=== PATIENT | male | born 1935 | race Caucasian/White ===

== ENCOUNTER 2020-09-10 16:02 | Observation (INO) | payer MEDICARE, BC ==
[2020-09-10 16:25] LABS: #Eosinphils 0.2 10x3/uL (0.0-0.5); #Monocytes 0.5 10x3/uL (0.0-1.1); #Neutrophils 3.2 10x3/uL (1.5-8.4); %Basophils 0.8 % (0.0-2.0); %Eosinophils 3.2 % (0.0-6.0); %Monocytes 9.4 % (0.0-10.0); %Neutrophils 64.4 % (40.0-75.0); Hemoglobin 14.6 g/dL (13.5-17.5); Mean Corpuscular Hemoglobin 32.1 pg (27.0-33.0); Mean Corpuscular Volume 94.5 fl (81.2-95.1); Mean Platelet Volume 9.3 fl (7.4-10.4); Platelet Count 219 10x3/uL (150-450); RBC Distribution Width 12.6 % (11.5-14.5); Red Blood Cell (RBC) Count 4.55 10x6/uL (4.32-5.72)
[2020-09-10 16:52] LABS: ALT (SGPT) 17 U/L (8-55); AST (SGOT) 20 U/L (5-34); Albumin 4.1 g/dL (3.4-4.8); Alkaline Phosphatase 70 U/L (40-110); Anion Gap 12 mmol/L (10-20); BUN (Urea Nitrogen) 14 mg/dL (8.4-25.7); Bilirubin, Total 0.4 mg/dL (0.2-1.2); Calc. Creatinine Clearance 0 mL/min (70-130); Calcium 8.9 mg/dL (7.8-10.44); Carbon Dioxide 26 mmol/L (23-31); Chloride 101 mmol/L (98-107); Globulin 2.7 g/dL (2.4-3.5); Glucose 110 mg/dL (83-110); Potassium 3.8 mmol/L (3.5-5.1); Protein, Total 6.8 g/dL (5.8-8.1); Sodium 135 mmol/L (136-145)
[2020-09-10] MEDS ORDERED: Dextrose 5% in Water 1,000 ML IV PRN (19:22)
[2020-09-10] MEDS ORDERED: Calcium Carbonate 500 MG ChewTAB PO PRN (19:22)
[2020-09-10] MEDS ORDERED: Senokot S 8.6-50 MG TAB PO PRN (19:22)
[2020-09-10] MEDS ORDERED: Ondansetron PF 4 MG/2 ML Vial IVP PRN (19:22)
[2020-09-10] MEDS ORDERED: Acetaminophen 325 MG TAB PO PRN (19:22)
[2020-09-10] MEDS ORDERED: Dextrose 50% Abboject 50 ML SYRINGE SLOW IVP PRN (19:22)
[2020-09-10] MEDS ORDERED: HumaLOG 300 UNITS/3 ML VIAL SC PRN (19:22)
[2020-09-10] MEDS ORDERED: Sodium Chloride 0.9% 500 ML IV SCH (19:30)
[2020-09-10] MEDS ORDERED: Lisinopril 20 MG TAB PO SCH (21:00)
[2020-09-10] MEDS ORDERED: Atorvastatin Calcium 10 MG TAB PO SCH (21:00)
[2020-09-10] MEDS ORDERED: Lisinopril 10 MG TAB ONE (22:00)
[2020-09-10] MEDS: Mesalamine DR 400 mg Capsule PO SCH (23:30)
[2020-09-11 04:20] LABS: Cardiac Risk 3.3 (Less than 4.5)
[2020-09-11] MEDS ORDERED: Enoxaparin Sodium 40 MG/0.4 ML SYRINGE SC SCH (09:00)
[2020-09-11] MEDS ORDERED: Ubidecarenone 50 MG CAP PO SCH (09:00)
[2020-09-11] MEDS ORDERED: Aspirin 81 mg Enteric Coated Tablet PO SCH (09:00)
[2020-09-11] MEDS: Carvedilol 6.25 MG TAB PO SCH ×2 (10:00→15:59)
[2020-09-11 10:01] VITALS: BMI 23.4
[2020-09-11] MEDS: metFORMIN 500 MG TAB PO SCH ×2 (10:01→16:00)
[2020-09-11] MEDS: Mesalamine DR 400 mg Capsule PO SCH ×2 (10:05→15:58)
[2020-09-11 11:22] LABS: Hemoglobin A1c 5.5 % (4.0-6.0)
[2020-09-11 16:08] VITALS: TEMP 97.8
[2020-09-11 16:17] VITALS: BP 146/74
[2020-09-11 22:14] LABS: SARS-CoV-2 PCR by NAA Not Detected (NotDetected)
== END 2020-09-11 17:40 | disposition home or self-care (01) ==
LOC: CSHERS 16:02 → CSHERHOLD 19:22 → UNDOADMOB 23:01 → CSHERHOLD 23:01 → INTOOBSV 23:01 → CSHTELE 09-11 07:45 → CSHERHOLD 09-11 07:45 → UNDODISOB 09-11 17:40
PROVIDERS: ADMIT Student in an Organized Health Care Education/Training Program; ATTEND Family Medicine
DX: I63.9 Cerebral infarction, unspecified (principal); R29.701 NIHSS score 1; G83.22 Monoplegia of upper limb affecting left dominant side; R90.82 White matter disease, unspecified; I49.3 Ventricular premature depolarization; E11.22 Type 2 diabetes mellitus with diabetic chronic kidney disease; I12.9 Hypertensive chronic kidney disease with stage 1 through stage 4 chronic kidney disease, or unspecified chronic kidney disease; N18.2 Chronic kidney disease, stage 2 (mild); K51.90 Ulcerative colitis, unspecified, without complications; Z20.822 Contact with and (suspected) exposure to COVID-19; Z79.899 Other long term (current) drug therapy; Z79.84 Long term (current) use of oral hypoglycemic drugs
CPT/HCPCS: 70450; 70551; 71045; 80053; 80061; 82962 ×2; 83036; 84443; 84484; 85025; 93005; 93306; 93880; 97139; 99285; U0003; U0005; 36415; 36416; 87635; 96372; G0378; J1650

== ENCOUNTER 2023-05-09 11:09 | Inpatient (IN) | payer MEDICARE, BC ==
[2023-05-09 11:45] LABS: #Basophils 0.1 10x3/uL (0.0-0.2); #Eosinphils 0.5 10x3/uL (0.0-0.5); #Monocytes 0.7 10x3/uL (0.0-1.1); #Neutrophils 3.9 10x3/uL (1.5-8.4); %Basophils 0.8 % (0.0-2.0); %Eosinophils 7.5 % (0.0-6.0); %Lymphocytes 14.9 % (18.0-47.0); %Monocytes 11.7 % (0.0-10.0); %Neutrophils 64.9 % (40.0-75.0); Hematocrit 37.1 % (38.8-50.0); Hemoglobin 12.4 g/dL (13.5-17.5); Mean Corpuscular HGB CONC 33.4 g/dL (32.0-36.0); Mean Corpuscular Volume 95.9 fl (81.2-95.1); Mean Platelet Volume 9.5 fl (7.4-10.4); Platelet Count 193 10x3/uL (150-450); RBC Distribution Width 13.2 % (11.5-14.5); Red Blood Cell (RBC) Count 3.87 10x6/uL (4.32-5.72)
[2023-05-09 12:00] LABS: Troponin I 0.018 ng/mL (< 0.028)
[2023-05-09 12:01] LABS: ALT (SGPT) 12 U/L (8-55); AST (SGOT) 16 U/L (5-34); Albumin 3.2 g/dL (3.4-4.8); Alkaline Phosphatase 71 U/L (40-110); Anion Gap 16 mmol/L (10-20); BUN (Urea Nitrogen) 14 mg/dL (8.4-25.7); Bilirubin, Total 0.6 mg/dL (0.2-1.2); Calc. Creatinine Clearance 0 mL/min (70-130); Calcium 8.2 mg/dL (7.8-10.44); Carbon Dioxide 23 mmol/L (23-31); Chloride 103 mmol/L (98-107); Estimated GFR 70; Globulin 2.7 g/dL (2.4-3.5); Glucose 87 mg/dL (83-110); Lipase 73 U/L (8-78); Magnesium 1.6 mg/dL (1.6-2.6); Potassium 4.6 mmol/L (3.5-5.1); Protein, Total 5.9 g/dL (5.8-8.1); Sodium 137 mmol/L (136-145)
[2023-05-09] MEDS ORDERED: Atropine Sulfate 1 mg/10 ml Syringe ONE (12:32)
[2023-05-09] MEDS ORDERED: Acetaminophen 325 MG TAB PO PRN (13:25)
[2023-05-09] MEDS ORDERED: Ondansetron ODT 4 MG TAB PO PRN (13:25)
[2023-05-09 14:48] VITALS: BMI 23.6
[2023-05-09] MEDS ORDERED: HumaLOG 300 UNITS/3 ML VIAL SC PRN (18:37)
[2023-05-09] MEDS ORDERED: Dextrose 50% Abboject 50 ML SYRINGE SLOW IVP PRN (18:37)
[2023-05-09] MEDS ORDERED: Glucagon 1 MG/ML KIT IM PRN (18:37)
[2023-05-09] MEDS ORDERED: Dextrose 5% in Water 1,000 ML IV PRN (18:37)
[2023-05-09] MEDS: Mesalamine DR 400 mg Capsule PO SCH (21:43)
[2023-05-10 04:47] LABS: Anion Gap 15 mmol/L (10-20); BUN (Urea Nitrogen) 13 mg/dL (8.4-25.7); Calc. Creatinine Clearance 48 mL/min (70-130); Calcium 8.3 mg/dL (7.8-10.44); Carbon Dioxide 23 mmol/L (23-31); Chloride 103 mmol/L (98-107); Estimated GFR 69; Glucose 87 mg/dL (83-110); Potassium 3.7 mmol/L (3.5-5.1); Sodium 137 mmol/L (136-145)
[2023-05-10 04:53] LABS: #Eosinphils 0.3 10x3/uL (0.0-0.5); #Monocytes 0.6 10x3/uL (0.0-1.1); #Neutrophils 3.9 10x3/uL (1.5-8.4); %Basophils 0.7 % (0.0-2.0); %Eosinophils 5.8 % (0.0-6.0); %Lymphocytes 16.2 % (18.0-47.0); %Monocytes 9.8 % (0.0-10.0); %Neutrophils 67.2 % (40.0-75.0); Hematocrit 35.4 % (38.8-50.0); Hemoglobin 12.1 g/dL (13.5-17.5); Mean Corpuscular HGB CONC 34.2 g/dL (32.0-36.0); Mean Corpuscular Hemoglobin 31.8 pg (27.0-33.0); Mean Corpuscular Volume 93.2 fl (81.2-95.1); Mean Platelet Volume 9.7 fl (7.4-10.4); Platelet Count 201 10x3/uL (150-450); White Blood Cell (WBC) Count 5.7 10x3/uL (3.5-10.5)
[2023-05-10] MEDS ORDERED: Aspirin Chewable 81 MG TAB PO SCH (09:00)
[2023-05-10] MEDS ORDERED: Tamsulosin HCl 0.4 MG CAP PO SCH (09:00)
[2023-05-10] MEDS ORDERED: Atorvastatin Calcium 20 MG TAB PO SCH (09:00)
[2023-05-10] MEDS ORDERED: Donepezil HCl 5 MG TAB PO SCH (09:00)
[2023-05-10] MEDS: Mesalamine DR 400 mg Capsule PO SCH ×2 (09:09→15:51)
[2023-05-10] MEDS ORDERED: Magnesium Sulfate 4 GM in Sodium Chloride 0.9% 250 ML 250 ML IVPB SCH (10:00)
[2023-05-10] MEDS: Magnesium 2 GM/50 ML(in water) 2 GM in Premix 1 BAG IVPB SCH ×2 (11:07→13:07)
[2023-05-10 16:43] VITALS: BP 135/62; TEMP 98.1
== END 2023-05-10 17:47 | disposition home or self-care (01) | DRG 309 ==
LOC: SUATTDRO 11:09 → CSHERS 11:09 → CSHTELE 14:43
PROVIDERS: ADMIT Internal Medicine; ATTEND Hospitalist
DX: R00.1 Bradycardia, unspecified (principal); I13.0 Hypertensive heart and chronic kidney disease with heart failure and stage 1 through stage 4 chronic kidney disease, or unspecified chronic kidney disease; I50.30 Unspecified diastolic (congestive) heart failure; Z98.890 Other specified postprocedural states; E11.22 Type 2 diabetes mellitus with diabetic chronic kidney disease; N18.2 Chronic kidney disease, stage 2 (mild); Z79.82 Long term (current) use of aspirin; Z79.899 Other long term (current) drug therapy; Z79.84 Long term (current) use of oral hypoglycemic drugs; N40.0 Benign prostatic hyperplasia without lower urinary tract symptoms; Z98.49 Cataract extraction status, unspecified eye; E78.5 Hyperlipidemia, unspecified; T50.995A Adverse effect of other drugs, medicaments and biological substances, initial encounter
CPT/HCPCS: 36415; 36416; 71045; 80048; 80053; 83690; 83735; 84443; 84484; 85025; 93005; 93306; 96374; J0461; J1650; J3475